=== PATIENT | female | born 1995 | race Caucasian/White ===

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

== ENCOUNTER 2017-08-11 16:50 | Outpatient (CLI) | payer OTHER ==
[2015-09-24 08:49] VITALS: BP 126/84
== END 2017-08-11 16:52 ==
LOC: LABRHC 16:50
PROVIDERS: ATTEND Family Medicine
DX: N76.1 Subacute and chronic vaginitis (principal)
CPT/HCPCS: 87491; 87591

== ENCOUNTER 2018-02-24 09:58 | Outpatient (CLI) | payer OTHER ==
[2015-09-24 08:49] VITALS: BP 126/84
== END 2018-02-24 10:00 ==
LOC: LABRHC 09:58
PROVIDERS: ATTEND Physician Assistant
DX: R30.0 Dysuria (principal)
CPT/HCPCS: 87086

== ENCOUNTER 2018-06-17 10:11 | Outpatient (CLI) | payer OTHER ==
[2015-09-24 08:49] VITALS: BP 126/84
== END 2018-06-17 10:12 ==
LOC: LAB 10:11
PROVIDERS: ATTEND Family Medicine
DX: N91.2 Amenorrhea, unspecified (principal)
CPT/HCPCS: 36415; 84702

== ENCOUNTER 2018-09-07 16:22 | Outpatient (CLI) | payer OTHER ==
[2015-09-24 08:49] VITALS: BP 126/84
== END 2018-09-07 16:23 ==
LOC: RAD 16:22 → LAB 16:23
PROVIDERS: ATTEND Family Medicine
DX: Z32.00 Encounter for pregnancy test, result unknown (principal)
CPT/HCPCS: 36415; 84702

== ENCOUNTER 2019-04-21 16:49 | Outpatient (CLI) | payer OTHER ==
[2015-09-24 08:49] VITALS: BP 126/84
== END 2019-04-21 16:52 ==
LOC: LABRHC 16:49
PROVIDERS: ATTEND Family Medicine
DX: R30.0 Dysuria (principal)
CPT/HCPCS: 87086

== ENCOUNTER 2019-06-18 15:15 | Outpatient (CLI) | payer OTHER ==
[2015-09-24 08:49] VITALS: BP 126/84
== END 2019-06-18 15:20 ==
LOC: LABRHC 15:15
PROVIDERS: ATTEND Family Medicine
DX: N89.8 Other specified noninflammatory disorders of vagina (principal)
CPT/HCPCS: 87491; 87591